=== PATIENT | male | born 1950 | race Caucasian/White ===

== ENCOUNTER 2016-08-16 04:45 | Emergency (ER) | payer OTHER ==
[~2016-08-16] VITALS: Ht 175.3 cm; Wt 77.1 kg
--- NOTE | 2016-08-16 04:57 | ED GI/GU/ABDOMINAL COMPLAINT ---
History of Present Illness General Chief Complaint: Abdominal Pain/Flank Pain Stated Complaint: ABD PAIN Source: patient, family Exam Limitations: no limitations Vital Signs & Intake/Output Vital Signs & Intake/Output Vital Signs Date Time Temp Pulse Resp B/P Pulse O2 O2 Flow FiO2 Ox Delivery Rate 08/166 Room Air 08/16 454 97.9 73 18 166/80 96 Room Air Allergies Coded Allergies: No Known Allergies (08/16/16) Reconcile Medications Ibuprofen 800 MG TABLET 1 TAB PO TID PRN PAIN Ondansetron (Zofran Odt) 4 MG TAB.RAPDIS 1 TAB SL TID PRN NAUSEA Oxycodone HCl/Acetaminophen (Percocet 5-325 MG Tablet) 5 MG-325 MG TABLET 1 TAB PO 4XDP PRN PAIN TEN...[id number] Simvastatin (Simvastatin*) 5 MG TABLET CHOLESTEROL (Reported) Tamsulosin HCl (Flomax) 0.4 MG CAP.ER.24H 1 CAP PO DAILY KIDNEY STONES Triage Note: PT TO TRIAGE FROM HOME C/O SEVERE L SIDED ABD PAIN. +N/-V/-D. DENIES ANY URINARY DIFFICULTIES. Triage Nurses Notes Reviewed? yes Onset: Abrupt Duration: hour(s):, waxing and waning Timing: recent history Quality/Severity: sharpness Location: left lower quadrant Radiation: no radiation Activities at Onset: sleep Prior Abdominal Problems: similar symptoms Modifying Factors: Improves With: rest. Associated Symptoms: abdominal pain, nausea/vomiting HPI: 66 yo gentleman presents with left lower quadrant pain for the past several hours associated with mild nausea. He notes that he had left lower back pain 2 days ago which self resolved. "It felt like a kidney stone but then it passed." He notes the pain in his left lower quadrant "comes and goes," is non radiating, and has presently nearly subsided. He has no fever, chills, diarrhea, dysuria, chest pain, shortness of breath. Past History Travel History Traveled to [place] past 21 day No Medical History Any Pertinent Medical History? see below for history Cardiovascular: hyperlipidemia Endocrine: GOUT Surgical History Surgical History: none Psychosocial History What is your primary language [place]er Tobacco Use: Never used ETOH Use: occasional use Family History Hx Contributory? No Review of Systems Review of Systems Constitutional: Reports: no symptoms. EENTM: Reports: no symptoms. Respiratory: Reports: no symptoms. Cardiovascular: Reports: no symptoms. GI: Reports: no symptoms. Genitourinary: Reports: no symptoms. Musculoskeletal: Reports: no symptoms. Skin: Reports: no symptoms. Neurological/Psychological: Reports: no symptoms. Hematologic/Endocrine: Reports: no symptoms. Immunologic/Allergic: Reports: no symptoms. All Other Systems: Reviewed and Negative Physical Exam Physical Exam General Appearance: well developed/nourished, mild distress Head: atraumatic, normal appearance Eyes: Bilateral: normal appearance. Ears, Nose, Throat, Mouth: hearing grossly normal Neck: normal inspection, supple, full range of motion Respiratory: normal breath sounds, chest non-tender, no respiratory distress, quiet respiration, lungs clear Cardiovascular: regular rate/rhythm Gastrointestinal: normal bowel sounds, soft, non-tender Back: normal inspection Extremities: normal range of motion Neurologic/Psych: no motor/sensory deficits, awake, alert, oriented x 3 Skin: intact, normal color, warm/dry Core Measures ACS in differential dx? No Severe Sepsis Present: No Septic Shock Present: No Progress Differential Diagnosis: pyelonephritis, ureterolithiasis, UTI/pyelo Plan of Care: Orders Procedure Date/time Status URINALYSIS 08/16 0546 Complete LIPASE 08/16 456 Complete COMPREHENSIVE METABOLIC PANEL 08/16 456 Complete CBC WITHOUT DIFFERENTIAL 08/16 456 Complete AMYLASE 08/16 456 Complete Laboratory Tests 08/16/16 0554: Urinalysis LIGHT H, Urine Color STRAW, Urine Clarity CLEAR, Urine pH 6.5, Ur Specific [place] 1.020, Urine Protein NEG, Urine Ketones NEG, Urine Nitrite NEG, Urine Bilirubin NEG, Urine Urobilinogen 0.2, Ur Leukocyte Esterase NEG, Ur Microscopic SEDIMENT EXAMINED, Urine RBC 5-10 H, Urine WBC 1-3 H, Ur Epithelial Cells FEW, Urine Mucus FEW, Urine Hemoglobin SMALL H, Urine Glucose NEG 08/16/16 0500: Anion Gap 11, Estimated GFR > 60, BUN/Creatinine Ratio 20.0, Glucose 120 H, Calcium 9.2, Total Bilirubin 0.5, AST 28, ALT 42, Alkaline Phosphatase 72, Total Protein 6.7, Albumin 4.2, Globulin 2.5, Albumin/Globulin Ratio 1.7, Amylase 67, Lipase 113, CBC w Diff NO MAN DIFF REQ, RBC 5.42, MCV 85.4, MCH 28.1, RDW 14.1, MPV 8.7, Gran % 69.8, Lymphocytes % 18.3 L, Monocytes % 9.7 H, Eosinophils % 1.7, Basophils % 0.5, Absolute Granulocytes 6.7 H, Absolute Lymphocytes 1.8, Absolute Monocytes 0.9 H, Absolute Eosinophils 0.2, Absolute Basophils 0.1, PUBS MCHC 32.9 L Diagnostic Imaging: Viewed by Me: CT Scan. Discussed w/RAD: CT Scan. Radiology Impression: abd/pelvic ct.... 5mm kidney stone, pulmonary nodules noted... full report below. Initial ED EKG: none Comments: PATIENT: DALE FRANCO PRESENT AGE: 66 PATIENT ACCOUNT NO: [id number] : 49 LOCATION: [facility] ORDERING PHYSICIAN: MATHIEU GAY MD SERVICE DATE: 08/16/16 EXAM TYPE: CAT - CT ABD & PELVIS W/O IV CONTRAS EXAMINATION: CT ABDOMEN AND PELVIS WITHOUT CONTRAST CLINICAL INFORMATION: Left lower quadrant pain. Evaluate for kidney stones versus diverticulitis. COMPARISON: None TECHNIQUE: Multidetector volumetric imaging was performed from the superior aspect of the liver through the pubic symphysis. Sagittal and coronal reformatted images were obtained on the technologist's workstation. DLP: 705 mGy-cm FINDINGS: Visualized lung bases are well aerated. 5 mm groundglass nodule of the right lower lobe (image [id number], series 3). 9 mm nodular density of the left fissure (image 65). The liver demonstrates normal size, contour and attenuation. No intrahepatic biliary ductal dilatation. The gallbladder is normal in appearance. The pancreas, spleen and adrenal glands are unremarkable. Small medial splenule. Mild left-sided hydroureteronephrosis secondary to 5 mm calculus within the left ureterovesical junction. There is moderate left-sided perinephric stranding. An additional 2 mm nonobstructing calculus is appreciated within the lower pole the left kidney. There is no right-sided renal calculi or hydronephrosis. Minimal right-sided perinephric stranding. Normal caliber loops of small and large bowel. Colonic diverticulosis without CT evidence to suggest active diverticulitis. Normal appendix. Normal caliber abdominal aorta demonstrating only mild atherosclerotic disease. The bladder is partially distended and demonstrates a 5 mm calculus within the left ureterovesical junction. Coarse calcifications within a prostate gland which measures 6 cm in transverse dimension. Degenerative changes of the spine. IMPRESSION: 1. Mild to moderate left-sided hydroureteronephrosis secondary to 5 mm calculus within the left ureterovesical junction. 2. Colonic diverticulosis without CT evidence to suggest active diverticulitis. 3. Enlarged prostate gland. 4. 5 mm groundglass nodule of the right lower lobe. An additional 9 mm nodular density of the left fissure is nonspecific but potentially represents an intrafissural lymph node. Various management parameters for solitary pulmonary nodules are in the literature. Follow-up as clinically indicated. DICTATED BY: YOVANA MOTA MD DATE/TIME DICTATED:08/16/16710 KINDER TEACHER:KAYLA DATE/TIME TRANSCRIBED:08/16/16710 CONFIDENTIAL, DO NOT COPY WITHOUT APPROPRIATE AUTHORIZATION. <Electronically signed in Other Vendor System> SIGNED BY: YOVANA MOTA MD 08/16/16 0724 Departure Departure Disposition: HOME OR SELF CARE Condition: Stable Clinical Impression Primary Impression: Kidney stones Secondary Impressions: Pulmonary nodules Departure Forms: Customer Survey General Discharge Information Prescriptions: Current Visit Scripts Tamsulosin HCl (Flomax) 1 CAP PO DAILY #10 CAP Ibuprofen 1 TAB PO TID PRN PAIN #30 TAB Oxycodone HCl/Acetaminophen (Percocet 5-325 MG Tablet) 1 TAB PO 4XDP PRN PAIN #10 TAB TEN...[id number] Ondansetron (Zofran Odt) 1 TAB SL TID PRN NAUSEA #10 TAB Ref 1 Comments 08/16/16, 7:27am.... pulmonary nodules and kidney stones noted... discussed at length ... pt to follow up with pmd and urology.
[2016-08-16] MEDS ORDERED: SIMVASTATIN5 M2 (05:04)
[2016-08-16 05:20] LABS: ABSOLUTE BASOPHIL COUNT 0.1 /CUMM (0.0-0.2); ABSOLUTE EOSINOPHIL COUNT 0.2 /CUMM (0.0-0.7); ABSOLUTE GRANULOCYTE CT 6.7 /CUMM (1.4-6.5); ABSOLUTE LYMPH COUNT 1.8 /CUMM (1.2-3.4); ABSOLUTE MONOCYTE COUNT 0.9 /CUMM (0.10-0.60); BASOPHIL % 0.5 % (0.0-2.0); EOSINOPHIL % 1.7 % (0-5); GRANULOCYTE % 69.8 % (42.2-75.2); HEMATOCRIT 46.3 % (42-52); MEAN CORPUSCULAR HGB 28.1 PG (27.0-31.0); MEAN CORPUSCULAR HGB CONC 32.9 G/DL (33.0-37.0); MEAN CORPUSCULAR VOLUME 85.4 FL (80.0-94.0); MEAN PLATELET VOLUME 8.7 FL (7.4-10.4); PLATELET COUNT 153 /CUMM (130-400); RBC DISTRIBUTION WIDTH 14.1 % (11.5-14.5); RED BLOOD CELL CT 5.42 /CUMM (4.70-6.10); WHITE BLOOD CELL COUNT 9.6 /CUMM (4.8-10.8)
[2016-08-16] MEDS ORDERED: FLOMAX0.4 M1 PO (07:00)
[2016-08-16] MEDS ORDERED: ZOFRAN ODT4 M1 SL (07:00)
[2016-08-16] MEDS ORDERED: PERCOCET 5-3251 EACH PO (07:00)
[2016-08-16] MEDS ORDERED: IBUPROFEN800 M1 PO (07:00)
--- NOTE | 2016-08-16 07:24 | CT SCAN REPORT ---
EXAMINATION: CT ABDOMEN AND PELVIS WITHOUT CONTRAST CLINICAL INFORMATION: Left lower quadrant pain. Evaluate for kidney stones versus diverticulitis. COMPARISON: None TECHNIQUE: Multidetector volumetric imaging was performed from the superior aspect of the liver through the pubic symphysis. Sagittal and coronal reformatted images were obtained on the technologist's workstation. DLP: 705 mGy-cm FINDINGS: Visualized lung bases are well aerated. 5 mm groundglass nodule of the right lower lobe (image [id number], series 3). 9 mm nodular density of the left fissure (image 65). The liver demonstrates normal size, contour and attenuation. No intrahepatic biliary ductal dilatation. The gallbladder is normal in appearance. The pancreas, spleen and adrenal glands are unremarkable. Small medial splenule. Mild left-sided hydroureteronephrosis secondary to 5 mm calculus within the left ureterovesical junction. There is moderate left-sided perinephric stranding. An additional 2 mm nonobstructing calculus is appreciated within the lower pole the left kidney. There is no right-sided renal calculi or hydronephrosis. Minimal right-sided perinephric stranding. Normal caliber loops of small and large bowel. Colonic diverticulosis without CT evidence to suggest active diverticulitis. Normal appendix. Normal caliber abdominal aorta demonstrating only mild atherosclerotic disease. The bladder is partially distended and demonstrates a 5 mm calculus within the left ureterovesical junction. Coarse calcifications within a prostate gland which measures 6 cm in transverse dimension. Degenerative changes of the spine. IMPRESSION: 1. Mild to moderate left-sided hydroureteronephrosis secondary to 5 mm calculus within the left ureterovesical junction. 2. Colonic diverticulosis without CT evidence to suggest active diverticulitis. 3. Enlarged prostate gland. 4. 5 mm groundglass nodule of the right lower lobe. An additional 9 mm nodular density of the left fissure is nonspecific but potentially represents an intrafissural lymph node. Various management parameters for solitary pulmonary nodules are in the literature. Follow-up as clinically indicated.
[2016-08-16 07:27] VITALS: BP 124/58
== END 2016-08-16 07:33 ==
LOC: ERH 04:45
PROVIDERS: Pediatrics
DX: N20.0 Calculus of kidney (principal); R91.1 Solitary pulmonary nodule
CPT/HCPCS: 74176; 81001; 96361; 96374; 96375; J1885; J2405